=== PATIENT | female | born 1965 | race Caucasian/White ===

== ENCOUNTER 2017-09-27 11:12 | Inpatient (IN) ==
[~2017-09-27 11:12] MED LIST: *HR* FentaNYL (PF) 100 MCG/2 ML VIAL ONE; *HR* Midazolam HCl 2 MG/2 ML VIAL ONE; *HR* Propofol 200 MG/20 ML VIAL IVP ONE; Lidocaine -MPF 2% 2 ML VIAL ONE; Propofol 500 MG/50 ML INFUS..BTL ONE
[2017-09-27] MEDS ORDERED: Famotidine 20 MG/2 ML VIAL IVP ONE (11:27)
[2017-09-27] MEDS ORDERED: Acetaminophen IV 1,000 MG/100 ML INFUS..BTL IVPB ONE (11:28)
[2017-09-27] MEDS ORDERED: Pregabalin 75 MG CAPSULE PO ONE (11:28)
[2017-09-27] MEDS ORDERED: Ringers Solution, Lactated 1,000 ML IVC SCH (11:30)
--- NOTE | 2017-09-27 11:31 | History & Physical Report ---
Date of Encounter: 09/27/17 Time of Encounter: 11:31 24 Hour HP Update - Instructions Instructions: If the History and Physical is less than 30 days old and was completed prior to A.M. admission and or procedure and has NOT been updated on calendar day of procedure please complete this update prior to performing procedure. - Update Patient reports changes in Medical Condition: No Changes in examination, assessment, or condition: No Changes in Medication: No Preop tests/diagnostics Reviewed: Yes Surgery Remains Indicated: Yes Consent for Planned Operative Procedure(s) Verified: Yes - Pre-Operative Checklist Preoperative Checklist Indicated: No Prophylactic Antibiotic Ordered: Yes Is VTE Prophylaxis Indicated?: Yes
[2017-09-27] MEDS ORDERED: CeFAZolin Syr 2,000MG/20 ML 2,000 MG/20 ML SYRINGE IVPB ONE (11:43)
[2017-09-27] MEDS ORDERED: Ethanol\\Acetic Acid\\Na Ace\\Ben 1,000 ML IRRIG.SOLN IR ONE (11:45)
--- NOTE | 2017-09-27 11:56 | Anesthesia Evaluation PreOp ---
Date of Encounter: 09/27/17 Time of Encounter: 12:00 - Past History Planned Operation: Rt TKA Cardiac History: HTN, Hyperlipidemia Pulmonary History: Denies Any Significant HX CLAM GROWER History: Denies Any Significant HX Other Medical History: Denies Any Significant HX, Other (Obese) Anesthesia History: No Prior Anesthetic Complications : No Alcohol Use: none Drug use: none Medications and Allergies Clindamycin [Cleocin] 150 mg PO Q6HR #7 capsule 10/30/16 [Rx] HYDROcodone/Acet 5/325 mg [[place] 5-325 mg] 1 tab PO Q6H PRN #14 tab 10/30/16 [Rx ] Ibuprofen [Motrin] 600 mg PO Q8HR #20 tab 10/30/16 [Rx] Mv-Mn/FA/Vit K/Lycop/Lut/Coq10 [Daily Multivitamin Capsule] 1 tab PO DAILY 10/30 [History] Aspirin Enteric Coated [Aspirin EC] 325 mg PO BID 10 Days #20 tablet. [Rx] OxyCODONE Immed Rel [Roxicodone 5 MG] 5 mg PO Q6HR PRN 7 Days #28 tablet [Rx] 3 Allergy/AdvReac Type Severity Reaction Status Date / Time No Known Allergies Allergy Verified 10/30/16 10:04 - Meds/Allergy Pre-op Review Medications Reviewed: Yes Allergies Reviewed: Yes Beta Blockers on Current Med List: No Anesthesia Results - Labs Laboratory Tests 10/30/16 09/16/17 09/16/17 09:56 13:12 13:12 Hgb 12.1 POC Hgb 13.7 Plt Count 251 PT 11.3 INR 1.0 APTT 33.0 Sodium Potassium BUN Creatinine 09/16/17 13:12 Hgb POC Hgb Plt Count PT INR APTT Sodium 138 Potassium 3.8 BUN 12 Creatinine 1.04 - Imaging EKG: report reviewed (SR) Anesthesia Exam O2 Sat Height 1.63 m Height 1.63 m Height 1.63 m Weight 98.43 kg Weight 98.43 kg Weight 98.43 kg O2 Sat by Pulse Oximetry 95 Vital Signs Temp Pulse Resp BP Pulse Ox 99.0 F 71 18 113/76 95 09/27/17 11:45 09/27/17 11:45 09/27/17 11:45 09/27/17 11:45 09/27/17 11:45 Height: 5'4 Weight: 217 lbs NPO (# of Hours): MN Pain Scale: 0 - HEENT Pupil (Motor): Pupils equal, EOMI Mallampati: II Teeth: Normal Oral Opening: Greater than 3 - CLAM GROWER LOC: Oriented CLAM GROWER Motor: Normal RUE, Normal LUE, Normal RLE, Normal LLE, Normal Face CLAM GROWER Sensory: Normal: RUE, LUE, RLE, LLE, Face - Cardiac Rhythm: Regular Murmur: None JVD: No Carotid Bruit: No - Pulmonary Breath Sounds: bilateral Clear Respiratory Effort: Symmetrical Anesthesia Assess/Plan ASA Score: 2 Modified [place] Scale for Level of Consciousness: Cooperative, oriented, and tranquil Anesthetic Plan: Regional, MAC Monitoring Plan: Standard Monitors Recovery Plan: PACU (Discussed SAB with Adductor Canal Block,possible GA, agrees to proceed)
[2017-09-27] MEDS ORDERED: ROPIVACAINE HCL/PF 0.5% 30 ML VIAL ONE (11:59)
[2017-09-27] MEDS ORDERED: Lidocaine -MPF 2% 5 ML VIAL ONE (11:59)
[2017-09-27] MEDS ORDERED: *HR* OxyCODONE/APAP 5/325 TABLET PO PRN ×2 (12:47→15:38)
[2017-09-27] MEDS ORDERED: Ondansetron 4 MG/2 ML VIAL IVP PRN ×2 (12:47→15:38)
--- NOTE | 2017-09-27 12:53 | Anesthesia Procedures ---
Date of Encounter: 09/27/17 Time of Encounter: 10:06 Procedures: Anesthesia - Epidural/Spinal Patient examined: Yes Supplemental Oxygen: Nasal Cannula Supplemental Oxygen Rate (L/min): 2 Sedation: Versed (mg): 2 Sedation: Fentanyl (mcg): 50 Site Prep: Aseptic Technique, Sterile prep and drape, Povidone-Iodine 1% Patient position: upright Local Anesthetic: Lidocaine 1% Amount of Local Anesthetic used: 2 Interspace Used: L4-L5 Blood: No CSF: Yes Paresthesia: No Spinal Needle Gauge: 25 Spinal Dose: 2 mL 0.5% Bupivacaine and 250mcg Duramorph Vitals + FHT's: Vital Signs/O2 Sat/Glucose, Most Recent Temp Pulse Resp BP Pulse Ox 99.0 F 57 18 92/75 97 09/27/17 11:45 09/27/17 12:27 09/27/17 11:45 09/27/17 12:27 09/27/17 12:27 - Nerve Block Procedure Date: 09/27/17 Time: 10:15 Allergies/Adv Reactions: NKDA Pre-op Diagnosis: R Knee Arthritis Surgical Procedure: R total knee arthroplasty robotic assisted Checklist: Correct Patient Identifier, Correct procedure, History checked Correct side: Right Blood Thinner: No Monitor Applied: EKG, BP, Pulse Oximetry Supplemental Oxygen via Nasal Cannula (L/min): 2 Sedation: Versed (mg): 2 (Given as sedation for PNB and Spinal) Sedation: Fentanyl (mcg): 50 (Given as sedation for PNB and Spinal) Indication: Post Op Analgesia Pre-op Neuro Deficits: No Block Type: Other (Adductor Canal Block) Catheter placed: No Sterile Technique: Yes Ultrasound used: Yes Anatomy identified: Yes Visual spread of Local: Yes Neuro Stimulation: No Blood on Needle Aspiration: No Smooth Injection of Local: Yes Pain with Injection of Local: No Prep: Chlorhexadine Needle: 21 x 100 mm Stimuplex Local: Ropivacaine (30mL of 0.5% Bupivacaine) Volume (cc): 30 Number of Attempts: 1 Complications: None/effective block Vitals: Vital Signs/O2 Sat/Glucose, Most Recent Temp Pulse Resp BP Pulse Ox 99.0 F 57 18 92/75 97 09/27/17 11:45 09/27/17 12:27 09/27/17 11:45 09/27/17 12:27 09/27/17 12:27
[2017-09-27] MEDS ORDERED: EPHEDrine 50 MG/ML VIAL ONE (13:02)
[2017-09-27] MEDS ORDERED: Propofol 500 MG/50 ML INFUS..BTL ONE (13:17)
--- NOTE | 2017-09-27 13:43 | Orthopedic Operative Note ---
Date of procedure: 09/27/17 Pre-op diagnosis: Right knee arthritis Post-op diagnosis: same Procedure: Procedure: Right robotic-assisted Total knee replacement Estimated blood loss: 200 cc Hardware: Metal and polyethylene replacement. Press-fit [place] Femur: 2 Tibia: 3 PS insert: 11 Patella: 36 Exam Under anesthesia: 1 degree hyperextension 1 degree varus as calculated by the robot full flexion and no instability Procedural Notes: Grade 3 arthritic changes all 3 compartments. Operative procedure: The patient was brought to the operating room and placed on the operating room table. After general anesthesia was administered the operative knee was examined. Findings were noted in the exam under anesthesia. The operative extremity was prepped and draped in sterile surgical fashion. The patient received IV antibiotics prior to skin incision. A standard midline incision was made centered over the patella. The incision was made through the skin and subcutaneous tissue. A medial parapatellar tendon approach was performed. Care was taken to preserve tissue along the medial aspect of the patella. And to protect the patella tendon. The deep MCL was released off the medial tibia. The infra patella fat pad was excised. The patella was everted and cut was made at the level of the insertion of the quadriceps and patella tendon. The patella was sized to 36 the guide was seated and the lug holes are drilled. Knee was brought into flexion. Patient noted to have grade 3 arthritic changes all 3 compartments. Steinmann pins were placed in the tibia and the femur for the tibial and femoral arrays respectively. Checkpoints were also placed in the tibia and the femur for calculation purposes. The knee including the femur and the tibial registered. Osteophytes, ACL and PCL were excised at this point. Extension and flexion were assessed with a valgus stress components were adjusted on the computer to balance the knee. Femoral cuts were made first with robotic assistance, these included the anterior cut posterior cuts chamfer cuts. Tibial cut was then performed with robotic assistance as well. Bone fragments were removed, as well as the medial and lateral meniscus. The size 2 femoral guide was seated box cut was made lug holes are drilled. The size 3 tibial tray was seated and prepared with the fin cutter. Trial reduction with the 11 PS Neelam revealed extension of 0 degree and 5 degree varus full flexion. No varus valgus instability. Trial reduction revealed excellent patella tracking. All trial components were removed all bony surfaces were irrigated. The Tibia was seated followed by the femur, The Neelam size 11 was seated and secured patella. Patient had similar findings for motion and stability. The knee was closed by the PA. The knee was then irrigated out with 2 L of pulse irrigation. The extensor mechanism was closed with #2 FiberWire suture and #2 PDS suture. The subcutaneous tissue was then irrigated and closed deep with #1 PDS suture superficially with 0 PDS suture and skin was closed with zip tie The patient was then placed in a sterile dressing and a postoperative brace extubated and transferred to recovery room in stable condition. Anesthesia: spinal Surgeon: Walter Cardona Was there an learning support assistant present: No Estimated blood loss (cc): 200 Condition: stable Disposition: PACU
[2017-09-27 15:00] LABS: Hematocrit 36.1 % (35.3-44.9); Hemoglobin 11.6 g/dL (11.5-15.4)
[2017-09-27] MEDS ORDERED: MOM Conc 10 ML UD.LIQ PO PRN (15:38)
[2017-09-27] MEDS ORDERED: Temazepam 15 MG CAPSULE PO PRN (15:38)
[2017-09-27] MEDS ORDERED: traMADol 50 MG TABLET PO PRN (15:38)
[2017-09-27] MEDS ORDERED: Naloxone 0.4 MG/ML INJ IVP PRN (15:38)
[2017-09-27] MEDS ORDERED: Sennosides 8.6 MG TABLET PO PRN (15:38)
[2017-09-27] MEDS: Ringers Solution, Lactated 1,000 ML IVC SCH (16:15)
[2017-09-27] MEDS: *HR* Enoxaparin 30 MG/0.3 ML SYRINGE SQ SCH (17:22)
--- NOTE | 2017-09-27 17:29 | Anesthesia Evaluation Post Op ---
Date of Encounter: 09/27/17 Time of Encounter: 14:30 Notes: Patient's vital signs have been reviewed. Patient is stable postoperatively and has adequately recovered from anesthesia. Patient is determined to have stable airway patency and respiratory function including respiratory rate and oxygen saturation. Patient has a stable heart rate, blood pressure and adequate hydration. Patients mental status is acceptable. Patients temperature is appropriate. Pain and nausea are adequately controlled. - Discharge PostOp Status: Transfer Patient to floor
[2017-09-27] MEDS ORDERED: *HR* Enoxaparin 30 MG/0.3 ML SYRINGE SQ SCH (18:00)
[2017-09-27] MEDS: cloNIDine HCl 0.1 MG TABLET PO SCH (19:49)
[2017-09-28 01:21] LABS: Hematocrit 38.8 % (35.3-44.9); Hemoglobin 12.8 g/dL (11.5-15.4)
[2017-09-28 01:46] LABS: BUN/Creatinine Ratio 16 (6-26); Blood Urea Nitrogen 15 mg/dL (6-20); Calcium 9.4 mg/dL (8.6-10.3); Carbon Dioxide 25 mEq/L (23-29); Chloride 106 mEq/L (98-107); Glucose 136 mg/dL (70-105); Osmolality,Calculated 289 (280-300); Potassium 3.9 mEq/L (3.5-5.1); Sodium 138 mEq/L (136-145); eGFR For African Americans > 60 (> 60); eGFR For Non-African Americans > 60 (> 60)
[2017-09-28] MEDS: *HR* Enoxaparin 30 MG/0.3 ML SYRINGE SQ SCH (05:07)
--- NOTE | 2017-09-28 06:27 | Orthopedics Progress Note ---
Date of Encounter: 09/28/17 Time of Encounter: 06:26 Subjective Interval history: Patient was seen this morning doing well without complaints. Afebrile vital signs stable. Operative extremity: Neurovascularly intact Dressing clean dry and intact Calves nontender Assessment and plan: Continue with postoperative care Hematocrit 38 discharged today Objective Vital signs: Vital Signs Temp Pulse Resp BP Pulse Ox 09/28/17 03:46 98.4 F 66 16 109/73 93 09/27/17 23:09 98.4 F 63 16 112/73 94 09/27/17 18:26 98.5 F 57 16 129/83 96 09/27/17 17:19 98.4 F 54 16 122/79 98 09/27/17 16:18 97.9 F 58 16 118/80 98 09/27/17 16:01 97.7 F 54 15 113/77 98 09/27/17 15:31 97.4 F L 55 14 118/80 100 09/27/17 14:59 98 09/27/17 14:33 98.2 F 58 16 99/66 97 09/27/17 14:23 97.8 F 60 18 103/70 100 09/27/17 14:13 98.2 F 64 18 108/73 95 09/27/17 14:03 98.2 F 69 18 92/63 94 09/27/17 13:20 97.4 F L 52 16 118/80 98 09/27/17 12:27 57 92/75 97 09/27/17 12:15 62 125/91 97 09/27/17 11:45 99.0 F 71 18 113/76 95 Intake and Output 09/27/17 09/27/17 09/28/17 15:59 23:59 07:59 Intake Total 20 / 20 350 / 350 200 / 200 Output Total 200 / 200 200 / 200 Balance -180 / -180 150 / 150 200 / 200 Intake: IV Fluids 20 / 20 100 / 100 Ancef Syringe 2,000 MG/20 ML 2, 20 / 20 000 mg In 20 ml @ 200 mls/hr IVPB PREOP ONE Rx#:[id number] Ancef 2,000 MG In 0.9 % Sodium 100 / 100 Chloride 100 ML @ 200 mls/hr IVPB Q8H [facility] Rx#:[id number] Oral 0 / 0 250 / 250 200 / 200 Output: Urine 0 / 0 200 / 200 Estimated Blood Loss 200 / 200 Other: # Voids 1 1 Weight 98.43 kg - Labs CBC & BMP: 09/28/17 01:08 09/28/17 01:08 Labs: Abnormal lab results Glucose 136 mg/dL (70-105) H 09/28/17 01:08 - VTE Documentation of Mechanical Device: Venous foot pump, device Consult Discharge Plan - Plan Referrals: Rajan Rodrigues MD [Primary Care Provider] -
[2017-09-28] MEDS: Ringers Solution, Lactated 1,000 ML IVC SCH (07:29)
[2017-09-28] MEDS: cloNIDine HCl 0.1 MG TABLET PO SCH (07:34)
[2017-09-28] MEDS ORDERED: Multivit/Ca/Min/Fe/FA 1 TAB TABLET PO SCH (09:00)
[2017-09-28 11:18] VITALS: BP 103/70
[2017-09-28] MEDS: *HR* OxyCODONE Immed Rel 5 MG TABLET PO PRN ×2 (12:01→17:05)
--- NOTE | 2017-09-28 16:18 | Discharge Summary ---
Orders not resulted at time of discharge: Pending orders 09/27/17 11:28 US anesthesia pain block [US] Routine 09/27/17 13:38 Surgical Pathology [PTH] Routine 09/29/17 04:00 Basic Metabolic Panel AM 0400 Hemoglobin and Hematocrit [HEME] AM 0400 Date of Encounter: 09/28/17 Time of Encounter: 14:30 - Discharge Diagnosis (1) Arthritis of right knee Priority: Primary Status: Chronic (2) Status post total right knee replacement Priority: Primary Status: Acute (3) HTN (hypertension) Priority: Secondary Status: Chronic Qualifiers: Hypertension type: unspecified Qualified Code(s): I10 - Essential (primary ) hypertension (4) Obesity Priority: Secondary Status: Chronic Qualifiers: Obesity type: unspecified obesity type Obesity classification: unspecified obesity classification Serious obesity comorbidity presence: unspecified whether serious comorbidity present Qualified Code(s): E66.9 - Obesity, unspecified - Hospital Course Hospital course: Ms. Ewing is a 52 year old female PCR POD#1 R THR robotic 09/27 [facility] PCR - Patient seen at bedside. Patient's relative at bedside. Alert and oriented x 3 Labwork and medications reviewed. Vital signs reviewed. No calf tenderness b/l LE. Neurovascularly intact b/l LE. Incision and dressing clean, dry, intact. Pain control: Adequate Participating in PT. All questions and concerns addressed. Educated on use of incentive spirometer, ambulation, and hydration. Patient educated on post-operative restrictions and care. Addressed: see above. D/C plan: Home with home health - Time Spent with Patient Total time spent providing and/or coordinating discharge services: Less than 30 minutes - Discharge Medications Home Medications: Mv-Mn/FA/Vit K/Lycop/Lut/Coq10 [Daily Multivitamin Capsule] 1 tab PO DAILY 10/30 [History] Aspirin Enteric Coated [Aspirin EC] 325 mg PO BID 10 Days #20 tablet. [Rx] OxyCODONE Immed Rel [Roxicodone 5 MG] 5 mg PO Q6HR PRN 7 Days #28 tablet [Rx] Calcium Carbonate [Calcium] 500 mg PO DAILY 09/27/17 [History] Cholecalciferol (Vitamin D3) [Vitamin D3] 1,000 mg PO DAILY 09/27/17 [History] Docusate [Colace] 100 mg PO DAILY PRN 09/27/17 [History] Loratadine [Allergy Relief] 10 mg PO DAILY 09/27/17 [History] Magnesium 30 mg PO DAILY 09/27/17 [History] Psyllium Husk [Fiber] 0.52 gm PO DAILY 09/27/17 [History] Ranitidine HCl [Acid Medical Administrative Assistant] 150 mg PO DAILY 09/27/17 [History] Venlafaxine HCl [Venlafaxine HCl ER] 37.5 mg PO DAILY 09/27/17 [History] Zolpidem Tartrate [Edluar] 10 mg PO DAILY 09/27/17 [History] cloNIDine HCl [Clonidine HCl] 0.2 mg PO BID 09/27/17 [History] Estrogen,Con/M-Progest Acet [Prempro 0.3 mg-1.5 mg Tablet] 1 tab PO DAILY [History] Allergies/Adverse Reactions: 3 Allergy/AdvReac Type Severity Reaction Status Date / Time No Known Allergies Allergy Verified 09/28/17 13:35 Date of admission: 09/27/17 15:23 Primary care physician: Rajan Rodrigues MD Consults: 09/27/17 15:38 Consult to Orthopedic Navigator [CONS] [CONS] Routine Consult to Physical Therapy [CONS] Routine Comment: Evaluate, develop and impliment POC Reason for Consult: post knee surgery Does patient have active BEDREST order?: No Is patient medically & hemodynamically stable?: Yes Consult to Power Brake Operator [CONS] Routine Reason for SW Consult: post op joint replacement RT Post Op Consult [CONS] Routine Anticipated date of discharge: 09/28/17 - VTE Documentation of Mechanical Device: Venous foot pump, device Labs on day of discharge: Labs from last 24 hours 09/28/17 09/28/17 01:08 01:08 Hgb 12.8 Hct 38.8 Sodium 138 Potassium 3.9 Chloride 106 Carbon Dioxide 25 BUN 15 Creatinine 0.94 Est GFR ( Amer) > 60 Est GFR (Non-Af Amer) > 60 BUN/Creatinine Ratio 16 Glucose 136 H Calculated Osmolality 289 Calcium 9.4 - Impressions ITS Impressions Knee X-Ray 09/27/17 01:00 IMPRESSION: 1. Interval placement of total right knee arthroplasty and patellar resurfacing with associated postsurgical changes. 2. Baseline periprosthetic lucency along the lateral aspect of the superior femoral component which measures up to 3 mm and can theoretically be seen with loose hardware in the appropriate clinical setting. D/ / Seth Castillo MD / Seth Castillo MD Interpreting Provider: Seth Castillo MD - Patient Status Disposition: Home Health Service Condition: Good Functional capacity at discharge: uses cane/walker Overall status at discharge: patient is progressing back to baseline - Discharge Instructions Follow Up With: Rajan Rodrigues MD [Primary Care Provider] - - Diet and Activity Activity: as per physical therapy Diet: advance to your usual diet
--- NOTE | 2017-09-29 11:58 | Physician Discharge Referral ---
Home Health/Hosp Referral Info Transfer to: Home Health Attending Provider: Dr Walter Cardona Provider in Charge Post Discharge: PCP - Diagnosis (1) Arthritis of right knee Priority: Primary Status: Chronic (2) Status post total right knee replacement Priority: Primary Status: Acute (3) HTN (hypertension) Priority: Secondary Status: Chronic (4) Obesity Priority: Secondary Status: Chronic - Respiratory Orders Smoking Cessation: Smoking cessation has been advised. For more information, call the [place] Tobacco Quit Line at 3-749-RZWS-NOW. - Dressing/Wound Care Site: Right knee Type of Dressing/Treatments w/Frequency: Opsite placed. Keep dressing intact until first follow up appointment. If greater than 50% saturated, notify office, remove dressing and place appropriate dressing back in place. Leave Zipline intact. Opsite dressing is water resistant, not water-proof. OK to shower, but do not get dressing wet. - Diet/Nutrition Diet/Nutrition Orders: Regular - Activity Activity Orders: Up ad mira, Ambulate, Chair, Walker Activity: List: Total Knee replacement Precautions x 6 weeks Apply cold therapy wrap 3-6x/day for 20 minutes at a time. Encourage ambulation throughout the day and incentive spirometer 10x/hour. Elevate affected extremity above heart as tolerated. Brace: Wear knee immobilizer at night x 2 weeks. - Services Needed Following services are medically necessary services: Nursing, Home Health Aide, Physical Therapy, Occupational Therapy - Transfer Medications Home Medications: Mv-Mn/FA/Vit K/Lycop/Lut/Coq10 [Daily Multivitamin Capsule] 1 tab PO DAILY 10/30 [History] Aspirin Enteric Coated [Aspirin EC] 325 mg PO BID 10 Days #20 tablet. [Rx] OxyCODONE Immed Rel [Roxicodone 5 MG] 5 mg PO Q6HR PRN 7 Days #28 tablet [Rx] Calcium Carbonate [Calcium] 500 mg PO DAILY 09/27/17 [History] Cholecalciferol (Vitamin D3) [Vitamin D3] 1,000 mg PO DAILY 09/27/17 [History] Docusate [Colace] 100 mg PO DAILY PRN 09/27/17 [History] Loratadine [Allergy Relief] 10 mg PO DAILY 09/27/17 [History] Magnesium 30 mg PO DAILY 09/27/17 [History] Psyllium Husk [Fiber] 0.52 gm PO DAILY 09/27/17 [History] Ranitidine HCl [Acid Radiation Protection Engineer] 150 mg PO DAILY 09/27/17 [History] Venlafaxine HCl [Venlafaxine HCl ER] 37.5 mg PO DAILY 09/27/17 [History] Zolpidem Tartrate [Edluar] 10 mg PO DAILY 09/27/17 [History] cloNIDine HCl [Clonidine HCl] 0.2 mg PO BID 09/27/17 [History] Estrogen,Con/M-Progest Acet [Prempro 0.3 mg-1.5 mg Tablet] 1 tab PO DAILY [History] Allergies/Adverse Reactions: 3 Allergy/AdvReac Type Severity Reaction Status Date / Time No Known Allergies Allergy Verified 09/28/17 13:35 Certification: Further, I certify that my clinical findings support that this patient is homebound (i.e. absences from home require considerable and taxing effort and are for medical reasons or tenriism services or infrequently or short duration when for other reasons) because: Homebound Reason: Post-surgery restriction and or conditions limit ability to leave home Attestation: My signature below is to certify that this patient is under my care and that I, or nurse practitioner, or a physician underwriting assistant working with me, has a face-to- face encounter with this patient.
== END 2017-09-28 17:19 | disposition home health service (06) | DRG 302 ==
LOC: SAMDAY 11:12 → 3NENU 15:23
PROVIDERS: ADMIT Orthopaedic Surgery; ATTEND Orthopaedic Surgery